=== PATIENT | female | born 1955 | race Caucasian/White ===

== ENCOUNTER 2017-08-24 01:52 | Emergency (ER) | payer OTHER ==
--- NOTE | 2017-08-24 01:58 | EDPHY ---
H & P HPI/ROS: HPI CHIEF COMPLAINT: Alcohol intoxication, fall, left arm injury HISTORY OF PRESENT ILLNESS: Patient is a very pleasant 62-year-old female she does have significant past medical history for depression and anxiety, she has been drinking wine this evening. She states she had at least 2 bottles 1. She got intoxicated. She had a mechanical trip and fall. She landed on her left arm and injured the left arm. She denies any other focal complaints. Denies chest pain or shortness of breath. Denies headache or neck pain. Denies head strike. States she is very anxious she has been feeling depressed recently in been drinking more. Past Medical History: Anxiety, depression Past Surgical History: No recent surgery Social History: Occasional alcohol use, denies illicit drugs or tobacco. Family History: Noncontributory. ROS REVIEW OF SYSTEMS: A comprehensive 10 point review of systems is otherwise negative aside from elements mentioned in the history of present illness. Exam Constitutional intoxicated, smells of alcohol, triage nursing summary reviewed , vital signs reviewed, awake/alert. Eyes normal conjunctivae and sclera, EOMI, PERRLA. HENT normal inspection, atraumatic, moist mucus membranes, no epistaxis, neck supple/ no meningismus, no raccoon eyes. Respiratory clear to auscultation bilaterally, normal breath sounds, no respiratory distress, no wheezing. Cardiovascular rate normal, regular rhythm, no murmur, no edema, distal pulses normal. Gastrointestinal soft, non-tender, no rebound, no guarding, normal bowel sounds, no distension, no pulsatile mass. Genitourinary no CVA tenderness. Musculoskeletal no midline vertebral tenderness, full range of motion, no calf swelling, no tenderness of extremities, no meningismus, good pulses, neurovascularly intact. Skin pink, warm, & dry, no rash, skin atraumatic. Neurologic awake, alert and oriented x 3, AAOx3, moves all 4 extremities equally, motor intact, sensory intact, CN II-XII intact, normal cerebellar, normal vision, normal speech. Psychiatric normal mood/affect. Heme/Lymph/Immune no lymphadenopathy. Differential Diagnosis: Includes but is not limited to in a particular order acute alcohol intoxication, dehydration, electrolyte disturbance, left arm skin tear. Medical Decision Making: Plan for this patient IV establishment surveillance monitor , IV fluid bolus, check serum alcohol level, check electrolytes, Re-evaluation: ED x-ray chest one view: Negative for acute cardiopulmonary disease. Serum alcohol 437 at 2:36 a.m.. 0622: Patient up ambulating story to the bathroom clinically sober. Stable gait. No ataxia. Calm and cooperative. Pleasant. She is requesting discharge. She is clinically sober. She has no complaints. It is noted that she fell did have a hematoma to her left forearm. There are 2 skin tears present. No laceration that needs to be repaired. Will place ice pack dressing. She has declined imaging or x-ray of her left arm. She would like to go home she is very pleasant. Source: Patient, EMS - Medical/Surgical History Hx Asthma: Yes Hx Chronic Respiratory Disease: No Hx Diabetes: No Hx Cardiac Disease: No Hx Renal Disease: No Hx Cirrhosis: No Hx Alcoholism: No Hx HIV/AIDS: No Hx Splenectomy or Spleen Trauma: No Other PMH: depression, ETOH abuse - Social History Smoking Status: Former smoker Constitutional: Initial Vital Signs Temperature (C) 36.9 C 08/24/17 02:00 Heart Rate 97 08/24/17 02:00 Respiratory Rate 18 08/24/17 02:00 Blood Pressure 126/77 H 08/24/17 02:00 O2 Sat (%) 78 L 08/24/17 02:00 O2 Delivery Mode Nasal Cannula O2 (L/minute) 3 Allergies/Adverse Reactions: Sulfa (Sulfonamide Antibiotics) Allergy (Verified 01/29/14 22:49) Home Medications: Medication Instructions Recorded Cymbalta 08/24/17 Omeprazole 08/24/17 Triamcinolone 0.025% cream (*) 08/24/17 Xanax 08/24/17 buPROPion [Wellbutrin] 100 mg PO 08/24/17 traZODone 08/24/17 Medical Decision Making - Data Points Laboratory Results: Laboratory Results 08/24/17 02:00 08/24/17 02:00 08/24/17 08/24/17 02:00 02:00 WBC 4.46 10^3/uL 10^3/uL (3.80-9.50) RBC 4.53 10^6/uL 10^6/uL (4.18-5.33) Hgb 15.4 g/dL g/dL (12.6-16.3) Hct 43.6 % % (38.0-47.0) MCV 96.2 fL fL (81.5-99.8) MCH 34.0 pg pg (27.9-34.1) MCHC 35.3 g/dL g/dL (32.4-36.7) RDW 14.8 % % (11.5-15.2) Plt Count 114 10^3/uL L 10^3/uL (150-400) MPV 8.3 fL L fL (8.7-11.7) Neut % (Auto) 31.0 % L % (39.3-74.2) Lymph % (Auto) 56.3 % H % (15.0-45.0) [place] % (Auto) 11.4 % % (4.5-13.0) Eos % (Auto) 0.4 % L % (0.6-7.6) Baso % (Auto) 0.7 % % (0.3-1.7) Nucleat RBC Rel Count 0.0 % % (0.0-0.2) Absolute Neuts (auto) 1.38 10^3/uL L 10^3/uL (1.70-6.50) Absolute Lymphs (auto) 2.51 10^3/uL 10^3/uL (1.00-3.00) Absolute Monos (auto) 0.51 10^3/uL 10^3/uL (0.30-0.80) Absolute Eos (auto) 0.02 10^3/uL L 10^3/uL (0.03-0.40) Absolute Basos (auto) 0.03 10^3/uL 10^3/uL (0.02-0.10) Absolute Nucleated RBC 0.00 10^3/uL 10^3/uL (0-0.01) Immature Gran % 0.2 % % (0.0-1.1) Immature Gran # 0.01 10^3/uL 10^3/uL (0.00-0.10) Sodium 143 mEq/L mEq/L (134-144) Potassium 4.2 mEq/L mEq/L (3.5-5.2) Chloride 96 mEq/L L mEq/L (97-110) Carbon Dioxide 25 mEq/l mEq/l (22-31) Anion Gap 22 mEq/L H mEq/L (8-16) BUN 12 mg/dL mg/dL (7-23) Creatinine 0.8 mg/dL mg/dL (0.6-1.0) Estimated GFR > 60 Glucose 102 mg/dL H mg/dL (70-100) Calcium 8.8 mg/dL mg/dL (8.5-10.4) Ethyl Alcohol 437 mg/dL H* mg/dL (0-10) Medications Given: Discontinued Medications Sodium Chloride (Ns) 1,000 mls @ 0 mls/hr IV EDNOW ONE; Wide Open PRN Reason: Protocol Stop: 08/24/17 02:02 Last Admin: 08/24/17 02:23 Dose: 1,000 mls Departure - Departure Disposition: Home, Routine, Self-Care Clinical Impression: Alcoholic intoxication Qualifiers: Complication of substance-induced condition: uncomplicated Qualified Code(s): F10.920 - Alcohol use, unspecified with intoxication, uncomplicated Condition: Good Instructions: Alcohol Intoxication (ED), Abuse of Alcohol (ED) Referrals: Patient,NotPresent [Primary Care Provider] - As per Instructions
[2017-08-24] MEDS ORDERED: NS 1,000 ML IV ONE (02:01)
[2017-08-24 02:12] VITALS: RESP 18
[2017-08-24 02:12] LABS: % IMMATURE GRANULYOCYTES 0.2 % (0.0-1.1); ABSOLUTE IMMATURE GRANULOCYTES 0.01 10^3/uL (0.00-0.10); ADD DIFF? NO; ADD MORPH? NO; ADD SCAN? NO; ATYPICAL LYMPHOCYTE FLAG 0 (0-99); FRAGMENT RBC FLAG 0 (0-99); HEMATOCRIT 43.6 % (38.0-47.0); HEMOGLOBIN 15.4 g/dL (12.6-16.3); LEFT SHIFT FLG 0 (0-99); LIPEMIA HEMOLYSIS FLAG 90 (0-99); MEAN CELL HEMOGLOBIN CONCENTR. 35.3 g/dL (32.4-36.7); MEAN CELL VOLUME 96.2 fL (81.5-99.8); MEAN PLATELET VOLUME 8.3 fL (8.7-11.7); PLATELET CLUMPS FLAG 0 (0-99); PLATELET COUNT 114 10^3/uL (150-400); RED BLOOD CELL COUNT 4.53 10^6/uL (4.18-5.33); RED CELL DISTRIBUTION WIDTH 14.8 % (11.5-15.2)
[2017-08-24 02:25] LABS: ANION GAP 22 mEq/L (8-16); CALCIUM 8.8 mg/dL (8.5-10.4); CARBON DIOXIDE 25 mEq/l (22-31); CHLORIDE 96 mEq/L (97-110); CREATININE 0.8 mg/dL (0.6-1.0); GLOMERULAR FILTRATION RATE > 60; GLUCOSE 102 mg/dL (70-100); POTASSIUM 4.2 mEq/L (3.5-5.2); SODIUM 143 mEq/L (134-144)
[2017-08-24 02:36] LABS: ETHANOL SERUM 437 mg/dL (0-10)
[2017-08-24 05:17] VITALS: BP 118/83
[2017-08-24 07:01] VITALS: PULSE 82; TEMP 97.9; O2SAT 90
== END 2017-08-24 06:59 | disposition home or self-care (01) ==
LOC: EDUNIT#
DX: F10.920 Alcohol use, unspecified with intoxication, uncomplicated (principal); J45.909 Unspecified asthma, uncomplicated; E86.9 Volume depletion, unspecified; Z87.891 Personal history of nicotine dependence
CPT/HCPCS: G0480